=== PATIENT | female | born 1960 | race Caucasian/White ===

== ENCOUNTER 2020-02-11 19:24 | Emergency (ER) | payer BC, SELFPAY ==
[2020-02-11 19:30] VITALS: BP 141/90; PULSE 74; RESP 16; TEMP 36.7; O2SAT 94; BMI 27.4
[2020-02-11 20:35] VITALS: BP 150/93; PULSE 70; RESP 18; O2SAT 92
[2020-02-11 21:00] VITALS: BP 150/93; PULSE 67; RESP 16; O2SAT 97
--- NOTE | 2020-02-11 21:09 | ECG_ITS ---
Measurements Intervals [place] Rate: 60 P: 38 MS: 186 QRS: 37 QRSD: 96 T: 52 QT: 428 QTc: 430 SINUS RHYTHM Compared to ECG 09/30/2018 06:04:29 T-wave abnormality no longer present Electronically Signed On 02-13-2020 11:08:10 CDT by Gume Morse MD [email or web address] f
--- NOTE | 2020-02-11 21:09 | XRR_ITS ---
PROCEDURE INFORMATION: Exam: XR Chest, 1 View Exam date and time: 02/11/2020 9:18 PM Age: 59 years old Clinical indication: Other: Eye pain; Patient HX: Stents; Additional info: Chest pain TECHNIQUE: Imaging protocol: XR of the chest Views: 1 view. COMPARISON: CR Chest 1 [place] [id number] 09/25/2018 6:24 PM FINDINGS: Lungs: Unremarkable. No consolidation. Pleural space: Unremarkable. No pleural effusion. No pneumothorax. Heart/Mediastinum: Unremarkable. No cardiomegaly. Bones/joints: Unremarkable. XR/XR chest 1V portable [id number] IMPRESSION: Negative for infiltrate.
--- NOTE | 2020-02-11 21:09 | W.ED.CHESTPA ---
Documented by User: Ama Harrison MD 02/14/20 19:10 HPI - Chest Pain General: Chief Complaint: Eye Problems Stated Complaint: eye pain Time Seen by Provider: 02/11/20 21:00 History of Present Illness: HPI narrative: Patient is a 59-year-old female who presents today with complaints of clammy episodes and feeling poorly off and on this afternoon. She said it started around 1 this afternoon. She just had sudden onset of feeling poorly and then noted she was a little lightheaded and clammy. She laid down for a while and it got better but when she got up and active again it came back. She says it feels the same as when she came in and had to have a stent placed. She also describes burning across her back which was similar to her prior heart problems as well. At the same time she had some pain behind her left eye. She had no vision changes and that pain is resolved. She says that she had recent medication changes. She was taken off her Zetia and switch to pravastatin. She is on Effient and continues on that. She also had her thyroid medicine increased. She sees Dr. Clemons for her heart. complaint: chest discomfort Pertinent past history: coronary artery disease and STONEHAND Onset (ago): hour(s) (8) Timing of current episode: episodic Prior episodes: Yes Onset: during rest Pain location: other (Across her back) Pain radiation: none Quality: burning Associated symptoms: Deny abdominal pain, dyspnea, fever(s), nausea or vomiting Review of Systems General: Reports: 10 or more systems reviewed and unremarkable except in HPI and below Const: Denies: fever(s), chills, fatigue or malaise Eyes: Denies: change in vision ENMT: Denies: odynophagia Card: Denies: chest pain or swelling of feet/ankles Resp: Denies: dyspnea, productive cough or non-productive cough GI: Denies: abdominal pain, nausea or vomiting : Denies: flank pain or difficulty voiding Musc: Denies: neck pain or back pain Skin/Breast: Denies: rash Neuro: Denies: headache(s), numbness in extremities or weakness in extremities [place]/Lymph: Denies: easy bruising or easy bleeding PFSH ED PFSH: Social History Smoking and tobacco status: former smoker Physical Exam Const: COMMON NORMALS: no acute distress, patient oriented x3, no limitations and alert GENERAL APPEARANCE: cooperative and comfortable HENMT: HEAD & SCALP: normal to inspection FACE & SINUS: normal facial exam Eye: COMMON NORMALS: negative for EOMs intact bilaterally (Patient with a disconjugate gaze which she says is normal and unchanged for her) GENERAL EYE: appearance normal, both eyes and all related structures Neck/C-Spine: COMMON NORMALS: supple, no meningeal signs and no JVD Chest: COMMONS NORMALS: normal inspection of the chest Resp: COMMON NORMALS: normal respiratory effort, No use of accessory muscles and clear to auscultation bilaterally AUSCULTATION: clear to auscultation bilaterally Cardio: COMMON NORMALS: no JVD, regular rate, regular rhythm and No murmurs present (Cardio) RATE: regular rate RHYTHM: regular rhythm GI: COMMON NORMALS: Normal to inspection, nondistended, normoactive bowel sounds present, Soft to palpation and non-tender INSPECTION: Yes normal to inspection AUSCULTATION: Yes normoactive bowel sounds PALPATION: Yes Soft to palpation Back/Pelvis: COMMON NORMALS: thoracic and lumbar spine normal to inspection Extremity: COMMON NORMALS: normal to inspection Neuro: COMMON NORMALS: patient oriented x3, moves all extremities, no focal motor deficits and no sensory deficits noted SENSORIUM/ORIENTATION: Yes alert MENINGEAL SIGNS: Yes no meningeal signs Psych: COMMON NORMALS: mental status grossly normal, cooperative and normal affect Skin: COMMON NORMALS: no rashes or lesions noted and turgor normal GENERAL SKIN EXAM: no rashes or lesions noted and turgor normal Course Vital Signs: Vital signs: Vital Signs Temperature 98.1 F 02/11/20 19:30 Pulse Rate 76 02/12/20 00:03 Respiratory Rate 16 02/12/20 00:03 Blood Pressure 120/74 02/12/20 00:03 Pulse Oximetry 96 02/12/20 00:03 MDM - Chest Pain Lab Data: Labs: Lab Results 02/11/20 02/11/20 02/11/20 Range/Units 21:00 21:00 21:00 WBC 6.3 (4.0-10.0) 10^3/ uL RBC 5.06 (4.1-5.3) 10^6/u L Hgb 14.0 (11.5-15.3) g/dL Hct 44.0 (37.0-47.0) % MCV 87.0 (81-99) fL MCH 27.7 L (28.0-34.0) pg MCHC 31.8 (30.0-36.0) g/dL RDW 13.6 (12.1-15.1) % Plt Count 284 (130-400) 10^3/c mm MPV 10.3 (7.4-10.4) fL Neut % (Auto) 46.2 % Lymph % (Auto) 45.3 % [place] % (Auto) 6.6 % Eos % (Auto) 0.9 % Baso % (Auto) 0.8 % Neut # (Auto) 2.9 (1.8-7.7) 10^3/u L Lymph # (Auto) 2.9 (0.8-4.8) 10^3/u L [place] # (Auto) 0.4 (0.2-0.9) 10^3/u L Eos # (Auto) 0.1 (0.0-0.8) 10^3/u L Baso # (Auto) 0.1 (0.0-0.1) 10^3/u L Nucleated RBC % (a uto) 0 % Nucleated RBCs # 0.0 /100WBC PT 12.50 (10.5-13.3) SECO NDS INR 0.91 (0.8-1.2) APTT 29.4 (23.9-36.7) SECO NDS Sodium 137 (136-145) mmol/L Potassium 4.2 (3.5-5.1) mmol/L Chloride 100 (98-107) mmol/L Carbon Dioxide 24 (22-29) mmol/L Anion Gap 17.2 (5-19) BUN 11 (8-23) mg/dL Creatinine 0.5 (0.5-0.9) mg/dL GFR Calculation 125.9 (90-130) mL/min Glucose 97 (65-115) mg/dL Calculated Osmolal ity 280 L (285-295) mOsm/k g Calcium 10.1 (8.5-10.5) mg/dL Total Bilirubin 0.4 (0.15-1.2) mg/dL AST 20 (0-32) U/L ALT 25 (0-33) U/L Alkaline Phosphata se 82 (35-105) IU/L Troponin T Baselin e (0-10) ng/mL Troponin T 120 Min nondalton (0-10) ng/mL Delta Troponin T (0-10) ABS# NT-Pro-B Natriuret Pep 14 (0-125) pg/mL Total Protein 7.6 (6.6-8.7) g/dL Albumin 4.9 (3.5-5.2) g/dL Globulin 2.7 (1.3-4.6) g/dL 02/11/20 02/11/20 Range/Units 21:00 23:00 WBC (4.0-10.0) 10^3/ uL RBC (4.1-5.3) 10^6/u L Hgb (11.5-15.3) g/dL Hct (37.0-47.0) % MCV (81-99) fL MCH (28.0-34.0) pg MCHC (30.0-36.0) g/dL RDW (12.1-15.1) % Plt Count (130-400) 10^3/c mm MPV (7.4-10.4) fL Neut % (Auto) % Lymph % (Auto) % [place] % (Auto) % Eos % (Auto) % Baso % (Auto) % Neut # (Auto) (1.8-7.7) 10^3/u L Lymph # (Auto) (0.8-4.8) 10^3/u L [place] # (Auto) (0.2-0.9) 10^3/u L Eos # (Auto) (0.0-0.8) 10^3/u L Baso # (Auto) (0.0-0.1) 10^3/u L Nucleated RBC % (a uto) % Nucleated RBCs # /100WBC PT (10.5-13.3) SECO NDS INR (0.8-1.2) APTT (23.9-36.7) SECO NDS Sodium (136-145) mmol/L Potassium (3.5-5.1) mmol/L Chloride (98-107) mmol/L Carbon Dioxide (22-29) mmol/L Anion Gap (5-19) BUN (8-23) mg/dL Creatinine (0.5-0.9) mg/dL GFR Calculation (90-130) mL/min Glucose (65-115) mg/dL Calculated Osmolal ity (285-295) mOsm/k g Calcium (8.5-10.5) mg/dL Total Bilirubin (0.15-1.2) mg/dL AST (0-32) U/L ALT (0-33) U/L Alkaline Phosphata se (35-105) IU/L Troponin T Baselin e 6 (0-10) ng/mL Troponin T 120 Min nondalton 6.00 (0-10) ng/mL Delta Troponin T 0 (0-10) ABS# NT-Pro-B Natriuret Pep (0-125) pg/mL Total Protein (6.6-8.7) g/dL Albumin (3.5-5.2) g/dL Globulin (1.3-4.6) g/dL EKG Data^: EKG 1: EKG interpretation date: 02/11/20 EKG interpretation time: 21:10 Interpretation: sinus rhythm, rate 60. Q wave in III. question of slight ST segment elevation inferior. No criteria for STEMI Discharge Plan Discharge Patient Disposition: Home, Self-Care Clinical Impression: Chest pain Hypertension Qualifiers: Hypertension type: unspecified Qualified Code(s): I10 - Essential (primary) hypertension Condition: Stable Prescriptions: No Action ezetimibe [Zetia] 10 mg tablet 10 mg PO QDAY 30 Days Qty: 30 RF: 6 prasugrel [Effient] 10 mg tablet 10 mg PO DAILY 90 Days Qty: 90 RF: 3 Discharge Orders: Discharge Order (Routine); Ordered 02/11/20 Ordered By: Dominique Mcdaniels Referrals: Belem Cabral NP [Primary Care Provider] - 4-7 days Discharge Diet: Advance as tolerated Discharge Activity: Resume usual activity Patient Instructions: Hypertension (ED) Discharge Date/Time: 02/12/20 00:08 Coding Level of Care Code ED Daily Sales Audit Clerk for Chg Fwd Exam Comprehensive Documented by User: Dominique Mcdaniels MD 02/11/20 23:37 HPI - Chest Pain General: Chief Complaint: Eye Problems Stated Complaint: eye pain Time Seen by Provider: 02/11/20 21:00 [facility] ED PFSH: Social History Smoking and tobacco status: former smoker Course Vital Signs: Vital signs: Vital Signs Temperature 98.1 F 02/11/20 19:30 Pulse Rate 76 02/12/20 00:03 Respiratory Rate 16 02/12/20 00:03 Blood Pressure 120/74 02/12/20 00:03 Pulse Oximetry 96 02/12/20 00:03 MDM - Chest Pain MDM Narrative: Medical decision making narrative: Patient presents here with chest pain and high blood pressure. Initial and repeat troponins are negative. Patient is well-appearing here in initial and repeat troponin are negative. Patient is stable for discharge and return if worsening. Lab Data: Labs: Lab Results 02/11/20 02/11/20 02/11/20 Range/Units 21:00 21:00 21:00 WBC 6.3 (4.0-10.0) 10^3/ uL RBC 5.06 (4.1-5.3) 10^6/u L Hgb 14.0 (11.5-15.3) g/dL Hct 44.0 (37.0-47.0) % MCV 87.0 (81-99) fL MCH 27.7 L (28.0-34.0) pg MCHC 31.8 (30.0-36.0) g/dL RDW 13.6 (12.1-15.1) % Plt Count 284 (130-400) 10^3/c mm MPV 10.3 (7.4-10.4) fL Neut % (Auto) 46.2 % Lymph % (Auto) 45.3 % [place] % (Auto) 6.6 % Eos % (Auto) 0.9 % Baso % (Auto) 0.8 % Neut # (Auto) 2.9 (1.8-7.7) 10^3/u L Lymph # (Auto) 2.9 (0.8-4.8) 10^3/u L [place] # (Auto) 0.4 (0.2-0.9) 10^3/u L Eos # (Auto) 0.1 (0.0-0.8) 10^3/u L Baso # (Auto) 0.1 (0.0-0.1) 10^3/u L Nucleated RBC % (a uto) 0 % Nucleated RBCs # 0.0 /100WBC PT 12.50 (10.5-13.3) SECO NDS INR 0.91 (0.8-1.2) APTT 29.4 (23.9-36.7) SECO NDS Sodium 137 (136-145) mmol/L Potassium 4.2 (3.5-5.1) mmol/L Chloride 100 (98-107) mmol/L Carbon Dioxide 24 (22-29) mmol/L Anion Gap 17.2 (5-19) BUN 11 (8-23) mg/dL Creatinine 0.5 (0.5-0.9) mg/dL GFR Calculation 125.9 (90-130) mL/min Glucose 97 (65-115) mg/dL Calculated Osmolal ity 280 L (285-295) mOsm/k g Calcium 10.1 (8.5-10.5) mg/dL Total Bilirubin 0.4 (0.15-1.2) mg/dL AST 20 (0-32) U/L ALT 25 (0-33) U/L Alkaline Phosphata se 82 (35-105) IU/L Troponin T Baselin e (0-10) ng/mL Troponin T 120 Min nondalton (0-10) ng/mL Delta Troponin T (0-10) ABS# NT-Pro-B Natriuret Pep 14 (0-125) pg/mL Total Protein 7.6 (6.6-8.7) g/dL Albumin 4.9 (3.5-5.2) g/dL Globulin 2.7 (1.3-4.6) g/dL 02/11/20 02/11/20 Range/Units 21:00 23:00 WBC (4.0-10.0) 10^3/ uL RBC (4.1-5.3) 10^6/u L Hgb (11.5-15.3) g/dL Hct (37.0-47.0) % MCV (81-99) fL MCH (28.0-34.0) pg MCHC (30.0-36.0) g/dL RDW (12.1-15.1) % Plt Count (130-400) 10^3/c mm MPV (7.4-10.4) fL Neut % (Auto) % Lymph % (Auto) % [place] % (Auto) % Eos % (Auto) % Baso % (Auto) % Neut # (Auto) (1.8-7.7) 10^3/u L Lymph # (Auto) (0.8-4.8) 10^3/u L [place] # (Auto) (0.2-0.9) 10^3/u L Eos # (Auto) (0.0-0.8) 10^3/u L Baso # (Auto) (0.0-0.1) 10^3/u L Nucleated RBC % (a uto) % Nucleated RBCs # /100WBC PT (10.5-13.3) SECO NDS INR (0.8-1.2) APTT (23.9-36.7) SECO NDS Sodium (136-145) mmol/L Potassium (3.5-5.1) mmol/L Chloride (98-107) mmol/L Carbon Dioxide (22-29) mmol/L Anion Gap (5-19) BUN (8-23) mg/dL Creatinine (0.5-0.9) mg/dL GFR Calculation (90-130) mL/min Glucose (65-115) mg/dL Calculated Osmolal ity (285-295) mOsm/k g Calcium (8.5-10.5) mg/dL Total Bilirubin (0.15-1.2) mg/dL AST (0-32) U/L ALT (0-33) U/L Alkaline Phosphata se (35-105) IU/L Troponin T Baselin e 6 (0-10) ng/mL Troponin T 120 Min nondalton 6.00 (0-10) ng/mL Delta Troponin T 0 (0-10) ABS# NT-Pro-B Natriuret Pep (0-125) pg/mL Total Protein (6.6-8.7) g/dL Albumin (3.5-5.2) g/dL Globulin (1.3-4.6) g/dL Discharge Plan Discharge Patient Disposition: Home, Self-Care Clinical Impression: Chest pain Hypertension Qualifiers: Hypertension type: unspecified Qualified Code(s): I10 - Essential (primary) hypertension Condition: Stable Prescriptions: No Action ezetimibe [Zetia] 10 mg tablet 10 mg PO QDAY 30 Days Qty: 30 RF: 6 prasugrel [Effient] 10 mg tablet 10 mg PO DAILY 90 Days Qty: 90 RF: 3 Discharge Orders: Discharge Order (Routine); Ordered 02/11/20 Ordered By: Dominique Mcdaniels Referrals: Belem Cabral NP [Primary Care Provider] - 4-7 days Discharge Diet: Advance as tolerated Discharge Activity: Resume usual activity Patient Instructions: Hypertension (ED) Discharge Date/Time: 02/12/20 00:08 Coding Level of Care Code ED Daily Sales Audit Clerk for Chg Fwd Exam Comprehensive
[2020-02-11 21:15] LABS: Basophils # 0.1 10^3/uL (0.0-0.1); Basophils % 0.8 %; Eosinophils # 0.1 10^3/uL (0.0-0.8); Eosinophils % 0.9 %; Lymphocytes # 2.9 10^3/uL (0.8-4.8); Lymphocytes % 45.3 %; Mean Corpuscular HGB Conc 31.8 g/dL (30.0-36.0); Mean Corpuscular Hemoglobin 27.7 pg (28.0-34.0); Mean Platelet Volume 10.3 fL (7.4-10.4); Monocytes # 0.4 10^3/uL (0.2-0.9); Monocytes % 6.6 %; Neutrophils # 2.9 10^3/uL (1.8-7.7); Neutrophils % 46.2 %; Nucleated Red Blood Cells % 0 %; Platelet Count 284 10^3/cmm (130-400); Red Blood Count 5.06 10^6/uL (4.1-5.3); Red Cell Distribution Width 13.6 % (12.1-15.1); White Blood Count 6.3 10^3/uL (4.0-10.0)
[2020-02-11 21:29] LABS: INR 0.91 (0.8-1.2); Partial Thromboplastin Time 29.4 SECONDS (23.9-36.7)
[2020-02-11 21:37] LABS: Troponin(5th) Baseline 6 ng/mL (0-10)
[2020-02-11 21:44] LABS: Alanine Aminotransferase 25 U/L (0-33); Albumin Level 4.9 g/dL (3.5-5.2); Alkaline Phosphatase 82 IU/L (35-105); Anion Gap 17.2 (5-19); Aspartate Amino Transferase 20 U/L (0-32); Blood Urea Nitrogen 11 mg/dL (8-23); Calcium 10.1 mg/dL (8.5-10.5); Carbon Dioxide 24 mmol/L (22-29); Chloride 100 mmol/L (98-107); Globulin 2.7 g/dL (1.3-4.6); Glomerular Filtration Rate 125.9 mL/min (90-130); Glucose 97 mg/dL (65-115); NT Pro B Type Natriuretic Pept 14 pg/mL (0-125); Osmolality Calculated 280 mOsm/kg (285-295); Potassium 4.2 mmol/L (3.5-5.1); Sodium 137 mmol/L (136-145); Total Bilirubin 0.4 mg/dL (0.15-1.2); Total Protein 7.6 g/dL (6.6-8.7)
[2020-02-11 21:54] VITALS: BP 139/94; PULSE 69; RESP 19; O2SAT 95
[2020-02-11 22:14] VITALS: BP 131/89; PULSE 74; RESP 16; O2SAT 94
[2020-02-11 22:56] VITALS: BP 133/87; PULSE 66; RESP 16; O2SAT 95
--- NOTE | 2020-02-11 23:03 | PC.NURSE ---
care and report given to discharge door operator
--- NOTE | 2020-02-11 23:09 | ECG_ITS ---
Measurements Intervals [place] Rate: 60 P: 45 VA: 194 QRS: 48 QRSD: 94 T: 57 QT: 434 QTc: 435 SINUS RHYTHM Compared to ECG 09/30/2018 06:04:29 T-wave abnormality no longer present Electronically Signed On 02-13-2020 11:11:44 CDT by Gume Morse MD [id number] f
[2020-02-11 23:23] LABS: Troponin 5 2HR Delta 0 ABS# (0-10)
[2020-02-12 00:03] VITALS: BP 120/74; PULSE 76; RESP 16; O2SAT 96
== END 2020-02-12 00:08 | disposition home or self-care (01) ==
PROVIDERS: Emergency Medicine; Emergency Provider Emergency Medicine; PCP Nurse Practitioner
DX: R07.9 Chest pain, unspecified (principal); I10 Essential (primary) hypertension; Z87.891 Personal history of nicotine dependence
CPT/HCPCS: 12345; 71045; 80053; 83880; 84484; 85025; 85610; 85730; 93005; 93010; 99283; 99284

== ENCOUNTER 2020-09-06 10:32 | Emergency (ER) | payer BC, SELFPAY ==
--- NOTE | 2020-09-06 10:56 | XR_ITS ---
WS: [id number] XR chest 1V portable [id number] REASON FOR EXAM: cp FINDINGS: Chest is stable compared to 02/11/2020. Mild tortuosity of the thoracic aorta. Normal heart. Calcified granulomatous changes in both hemithoraces. No active pulmonary parenchymal or pleural abno rmality is noted. XR/XR chest 1V portable [id number] IMPRESSION: No acute chest abnormality.
--- NOTE | 2020-09-06 10:56 | ECG_ITS ---
[facility] Test Date: 2020-09-06 Pat Name: Karen Oden Department: Room: Gender: Female [id number] Administrator: : 1960 Requested By: Dominique Mcdaniels Order Number: [id number] Daniela MD: Cecilia Galan M.D. Measurements Intervals [place] Rate: 71 P: 66 [place]: 169 QRS: 85 QRSD: 88 T: 65 QT: 397 QTc: 432 Interpretive Statements SINUS RHYTHM Compared to ECG 02/11/2020 22:59:36 No significant changes Electronically Signed On 09-07-2020 22:19:52 AFFILIATE MARKETING MANAGER by Cecilia Galan M.D. [id number] f
--- NOTE | 2020-09-06 11:01 | W.ED.CHESTPA ---
HPI - Chest Pain General: Chief Complaint: COVID symptoms Stated Complaint: covid +/tightness in chest Time Seen by Provider: 09/06/20 10:56 Source: patient Mode of arrival: ambulatory Limitations: no limitations History of Present Illness: HPI narrative: 60-year-old female states she tested positive for Covid yesterday. She states she has been having some tingling in her chest with slight pressure. She denies any vomiting or diarrhea. She denies any shortness of breath. She states that her pain is current 1 out of 10. Denies any pain with inspiration. Associated symptoms: Deny abdominal pain, dyspnea, fever(s), nausea or vomiting Review of Systems Const: Denies: fever(s), chills, body aches or change in appetite Eyes: Denies: blurry vision or eye discomfort ENMT: Denies: throat pain or dental pain Card: Reports: chest pain Resp: Denies: dyspnea GI: Denies: abdominal pain, nausea, vomiting or diarrhea : Denies: dysuria Musc: Denies: neck pain or back pain Skin/Breast: Denies: rash Neuro: Denies: headache(s) Psych: Denies: depression Tico/Lymph: Denies: easy bruising All/Imm: Denies: urticaria PFSH ED PFSH: Medical History (Updated 09/06/20 @ 12:21 by Dominique Mcdaniels MD) Hx of coronary artery disease Social History Smoking and tobacco status: former smoker Physical Exam Const: COMMON NORMALS: no acute distress, patient oriented x3 and healthy appearing HENMT: COMMON NORMALS: normocephalic and atraumatic HEAD & SCALP: normocephalic and atraumatic Eye: COMMON NORMALS: Equal, round and reactive pupils present and EOMs intact bilaterally PUPIL: Yes Equal, round and reactive pupils present Neck/C-Spine: COMMON NORMALS: full ROM and supple Chest: COMMONS NORMALS: normal inspection of the chest and normal palpation of entire chest wall Resp: COMMON NORMALS: normal respiratory effort, No retractions, No use of accessory muscles and clear to auscultation bilaterally AUSCULTATION: clear to auscultation bilaterally Cardio: COMMON NORMALS: regular rate, regular rhythm and No murmurs present (Cardio) RATE: regular rate RHYTHM: regular rhythm GI: COMMON NORMALS: Normal to inspection, nondistended, normoactive bowel sounds present, Soft to palpation, non-tender and no masses PALPATION: Yes Soft to palpation Extremity: COMMON NORMALS: normal to inspection and full ROM Neuro: COMMON NORMALS: patient oriented x3, moves all extremities and no focal motor deficits Psych: COMMON NORMALS: mental status grossly normal, Normal thought process present and cooperative THOUGHT PROCESS: Normal thought process present Skin: COMMON NORMALS: no rashes or lesions noted and no wounds GENERAL SKIN EXAM: no rashes or lesions noted Course Vital Signs: Vital signs: Vital Signs Temperature 98.2 F 09/06/20 11:03 Pulse Rate 72 09/06/20 11:44 Respiratory Rate 16 09/06/20 11:44 Blood Pressure 131/80 09/06/20 11:44 Pulse Oximetry 94 09/06/20 11:44 MDM - Chest Pain MDM Narrative: Medical decision making narrative: Rtia presents here with atypical chest pain. Likely pleurisy from her Covid. Her x-ray and lab work are all normal. She has no signs of pulmonary embolism or acute coronary cause. She is stable for discharge and is to monitor her oxygen and return if worsening. She understands and agrees to plan. Lab Data: Labs: Lab Results 09/06/20 09/06/20 09/06/20 Range/Units 11:37 11:37 11:37 WBC 4.3 (4.0-10.0) 10^3/ uL RBC 5.18 (4.1-5.3) 10^6/u L Hgb 14.5 (11.5-15.3) g/dL Hct 45.5 (37.0-47.0) % MCV 87.8 (81-99) fL MCH 28.0 (28.0-34.0) pg MCHC 31.9 (30.0-36.0) g/dL RDW 13.2 (12.1-15.1) % Plt Count 256 (130-400) 10^3/c mm MPV 10.4 (7.4-10.4) fL Neut % (Auto) 53.5 % Lymph % (Auto) 37.3 % [place] % (Auto) 8.8 % Eos % (Auto) 0.2 % Baso % (Auto) 0.2 % Neut # (Auto) 2.31 (1.8-7.7) 10^3/u L Lymph # (Auto) 1.6 (0.8-4.8) 10^3/u L [place] # (Auto) 0.4 (0.2-0.9) 10^3/u L Eos # (Auto) 0.0 (0.0-0.8) 10^3/u L Baso # (Auto) 0.0 (0.0-0.1) 10^3/u L Nucleated RBC % (a uto) 0 % Nucleated RBCs # 0.0 /100WBC PT (12.1-14.9) SECO NDS INR (0.8-1.2) Sodium 138 (136-145) mmol/L Potassium 4.4 (3.5-5.1) mmol/L Chloride 102 (98-107) mmol/L Carbon Dioxide 28 (22-29) mmol/L Anion Gap 12.4 (5-19) BUN 12 (8-23) mg/dL Creatinine 0.5 (0.5-0.9) mg/dL GFR Calculation 125.4 (90-130) mL/min Glucose 120 H (65-115) mg/dL Calculated Osmolal ity 287 (285-295) mOsm/k g Calcium 10.0 (8.5-10.5) mg/dL Total Bilirubin 0.2 (0.15-1.2) mg/dL AST 18 (0-32) U/L ALT 24 (0-33) U/L Alkaline Phosphata se 81 (35-105) IU/L Troponin T Baselin e 6 (0-10) ng/L Troponin T 120 Min johnny (0-10) ng/L Delta Troponin T (0-10) ABS# Total Protein 7.3 (6.6-8.7) g/dL Albumin 4.5 (3.5-5.2) g/dL Globulin 2.8 (1.3-4.6) g/dL 09/06/20 09/06/20 Range/Units 11:37 12:28 WBC (4.0-10.0) 10^3/ uL RBC (4.1-5.3) 10^6/u L Hgb (11.5-15.3) g/dL Hct (37.0-47.0) % MCV (81-99) fL MCH (28.0-34.0) pg MCHC (30.0-36.0) g/dL RDW (12.1-15.1) % Plt Count (130-400) 10^3/c mm MPV (7.4-10.4) fL Neut % (Auto) % Lymph % (Auto) % [place] % (Auto) % Eos % (Auto) % Baso % (Auto) % Neut # (Auto) (1.8-7.7) 10^3/u L Lymph # (Auto) (0.8-4.8) 10^3/u L [place] # (Auto) (0.2-0.9) 10^3/u L Eos # (Auto) (0.0-0.8) 10^3/u L Baso # (Auto) (0.0-0.1) 10^3/u L Nucleated RBC % (a uto) % Nucleated RBCs # /100WBC PT 12.80 (12.1-14.9) SECO NDS INR 0.94 (0.8-1.2) Sodium (136-145) mmol/L Potassium (3.5-5.1) mmol/L Chloride (98-107) mmol/L Carbon Dioxide (22-29) mmol/L Anion Gap (5-19) BUN (8-23) mg/dL Creatinine (0.5-0.9) mg/dL GFR Calculation (90-130) mL/min Glucose (65-115) mg/dL Calculated Osmolal ity (285-295) mOsm/k g Calcium (8.5-10.5) mg/dL Total Bilirubin (0.15-1.2) mg/dL AST (0-32) U/L ALT (0-33) U/L Alkaline Phosphata se (35-105) IU/L Troponin T Baselin e (0-10) ng/L Troponin T 120 Min johnny 6.00 (0-10) ng/L Delta Troponin T 0 (0-10) ABS# Total Protein (6.6-8.7) g/dL Albumin (3.5-5.2) g/dL Globulin (1.3-4.6) g/dL Imaging Data^: CXR: Radiologist's impression: no acute abnormality EKG Data^: EKG 1: Attestation: I personally reviewed and interpreted this EKG as follows: EKG interpretation date: 09/06/20 EKG interpretation time: 11:05 Interpretation: nsr hr [address] or twave abnormalities qrs 88 qtc 419 Discharge Plan Discharge Patient Disposition: Home Clinical Impression: COVID-19, Atypical chest pain Condition: Stable Prescriptions: No Action thyroid (pork) 30 mg tablet 30 mg PO DAILY RF: 0 nitroglycerin [Nitrostat] 0.4 mg tablet, sublingual 0.4 mg SUBLINGUAL Q5M PRNRF: 0 aspirin [Adult Aspirin Regimen] 81 mg tablet,delayed release (DR/EC) 81 mg PO DAILY RF: 0 pravastatin 20 mg tablet 40 mg PO DAILY RF: 0 ezetimibe [Zetia] 10 mg tablet 10 mg PO QDAY 30 Days Qty: 30 RF: 6 prasugrel [Effient] 10 mg tablet 10 mg PO DAILY 90 Days Qty: 90 RF: 3 Discharge Orders: Discharge ED (Routine); Ordered 09/06/20 Ordered By: Dominique Mcdaniels Referrals: Belem Cabral NP [Primary Care Provider] - 1-3 days Discharge Diet: Advance as tolerated Discharge Activity: Resume usual activity Patient Instructions: Chest Pain (ED) Coding Level of Care Code ED Lye Peel Operator for Chg Fwd Exam Comprehensive
[2020-09-06 11:03] VITALS: BP 125/79; PULSE 110; RESP 16; TEMP 36.8; O2SAT 95; BMI 25.6
[2020-09-06 11:11] VITALS: BP 131/80; PULSE 75; RESP 16; O2SAT 94
[2020-09-06 11:42] VITALS: O2SAT 93
[2020-09-06 11:44] VITALS: BP 131/80; PULSE 72; RESP 16; O2SAT 94
[2020-09-06 11:45] LABS: Basophils % 0.2 %; Eosinophils % 0.2 %; Hematocrit 45.5 % (37.0-47.0); Hemoglobin 14.5 g/dL (11.5-15.3); Lymphocytes # 1.6 10^3/uL (0.8-4.8); Lymphocytes % 37.3 %; Mean Corpuscular HGB Conc 31.9 g/dL (30.0-36.0); Mean Corpuscular Volume 87.8 fL (81-99); Mean Platelet Volume 10.4 fL (7.4-10.4); Monocytes # 0.4 10^3/uL (0.2-0.9); Monocytes % 8.8 %; Neutrophils # 2.31 10^3/uL (1.8-7.7); Neutrophils % 53.5 %; Nucleated Red Blood Cells % 0 %; Platelet Count 256 10^3/cmm (130-400); Red Blood Count 5.18 10^6/uL (4.1-5.3); Red Cell Distribution Width 13.2 % (12.1-15.1); White Blood Count 4.3 10^3/uL (4.0-10.0)
[2020-09-06 11:57] LABS: INR 0.94 (0.8-1.2)
[2020-09-06 12:06] LABS: Alanine Aminotransferase 24 U/L (0-33); Albumin Level 4.5 g/dL (3.5-5.2); Alkaline Phosphatase 81 IU/L (35-105); Anion Gap 12.4 (5-19); Aspartate Amino Transferase 18 U/L (0-32); Blood Urea Nitrogen 12 mg/dL (8-23); Carbon Dioxide 28 mmol/L (22-29); Chloride 102 mmol/L (98-107); Creatinine Clr Calc Pharmacy 103.4505; Globulin 2.8 g/dL (1.3-4.6); Glomerular Filtration Rate 125.4 mL/min (90-130); Glucose 120 mg/dL (65-115); Osmolality Calculated 287 mOsm/kg (285-295); Potassium 4.4 mmol/L (3.5-5.1); Sodium 138 mmol/L (136-145); Total Bilirubin 0.2 mg/dL (0.15-1.2); Total Protein 7.3 g/dL (6.6-8.7)
[2020-09-06 12:07] LABS: Troponin(5th) Baseline 6 ng/L (0-10)
[2020-09-06 12:59] LABS: Troponin 5 2HR Delta 0 ABS# (0-10)
[2020-09-06 13:15] VITALS: BP 126/83; PULSE 88; RESP 16; TEMP 37.1; O2SAT 94
== END 2020-09-06 13:17 | disposition home or self-care (01) ==
PROVIDERS: Emergency Provider Emergency Medicine; PCP Nurse Practitioner
DX: U07.1 COVID-19 (principal); R07.89 Other chest pain; Z79.82 Long term (current) use of aspirin; I25.10 Atherosclerotic heart disease of native coronary artery without angina pectoris; Z87.891 Personal history of nicotine dependence
CPT/HCPCS: 12345; 71045; 80053; 84484; 85025; 85610; 93005; 99283

== ENCOUNTER 2021-03-18 20:08 | Emergency (ER) | payer BC, SELFPAY ==
[2021-03-18 20:29] VITALS: BP 164/92; PULSE 72; RESP 17; O2SAT 95; BMI 26.2
--- NOTE | 2021-03-18 20:31 | XRR_ITS ---
PROCEDURE INFORMATION: Exam: XR Chest Exam date and time: 03/18/2021 8:31 PM Age: 60 years old Clinical indication: Other: Chills/sweats/malaise TECHNIQUE: Imaging protocol: XR of the chest. Views: 1 view. COMPARISON: CR XR chest 1V portable [id number] 09/06/2020 11:18 AM FINDINGS: Lungs: Unremarkable. No consolidation. Pleural spaces: Unremarkable. No pleural effusion. No pneumothorax. Heart/Mediastinum: Unremarkable. No cardiomegaly. Bones/joints: Unremarkable. XR/XR chest 1V portable [id number] IMPRESSION: No acute findings. Stable appearance of the chest compared with 09/06/2020.
--- NOTE | 2021-03-18 20:48 | ECG_ITS ---
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 Measurements Intervals [place] Rate: 65 P: 36 NV: 190 QRS: 36 QRSD: 77 T: 46 QT: 389 QTc: 407 Interpretive Statements SINUS RHYTHM POSSIBLE LEFT ATRIAL ENLARGEMENT [-0.1mV P WAVE IN V1/V2] LOW QRS VOLTAGE IN PRECORDIAL LEADS [QRS DEFLECTION < 1.0 mV IN CHEST LEADS] SEPTAL MYOCARDIAL INFARCTION [40+ ms Q WAVE IN V1/V2], OF INDETERMINATE AGE ST ELEVATION, CONSIDER INFERIOR INJURY [MARKED ST ELEVATION W/O NORMALLY INFLECTED T WAVE IN II/aVF] ACUTE DC Compared to ECG 09/06/2020 11:05:59 Low QRS voltage now present Myocardial infarct finding now present ST (T wave) deviation now present Electronically Signed On 03-19-2021 21:09:51 CDT by Cecilia Galan M.D. [id number]
[2021-03-18 20:50] VITALS: BP 145/83; PULSE 65; RESP 15; O2SAT 96
[2021-03-18 21:48] LABS: Basophils # 0.1 10^3/uL (0.0-0.1); Basophils % 0.7 %; Eosinophils # 0.1 10^3/uL (0.0-0.8); Hematocrit 42.2 % (37.0-47.0); Hemoglobin 13.4 g/dL (11.5-15.3); Lymphocytes # 1.9 10^3/uL (0.8-4.8); Lymphocytes % 27.9 %; Mean Corpuscular HGB Conc 31.8 g/dL (30.0-36.0); Mean Corpuscular Hemoglobin 27.4 pg (28.0-34.0); Mean Corpuscular Volume 86.3 fL (81-99); Mean Platelet Volume 10.7 fL (7.4-10.4); Monocytes # 0.4 10^3/uL (0.2-0.9); Monocytes % 5.4 %; Neutrophils # 4.41 10^3/uL (1.8-7.7); Neutrophils % 64.7 %; Nucleated Red Blood Cells % 0 %; Platelet Count 248 10^3/cmm (130-400); Red Blood Count 4.89 10^6/uL (4.1-5.3); Red Cell Distribution Width 13.7 % (12.1-15.1); White Blood Count 6.8 10^3/uL (4.0-10.0)
[2021-03-18 21:49] LABS: Troponin(5th) Baseline 6 ng/L (0-10)
[2021-03-18 21:52] LABS: Alanine Aminotransferase 20 U/L (0-33); Albumin Level 4.7 g/dL (3.5-5.2); Alkaline Phosphatase 69 IU/L (35-105); Anion Gap 18.1 (5-19); Aspartate Amino Transferase 19 U/L (0-32); Blood Urea Nitrogen 13 mg/dL (8-23); Calcium 9.9 mg/dL (8.5-10.5); Carbon Dioxide 23 mmol/L (22-29); Chloride 102 mmol/L (98-107); Globulin 2.4 g/dL (1.3-4.6); Glomerular Filtration Rate 125.4 mL/min (90-130); Glucose 115 mg/dL (65-115); Osmolality Calculated 289 mOsm/kg (285-295); Potassium 4.1 mmol/L (3.5-5.1); Sodium 139 mmol/L (136-145); Total Bilirubin 0.2 mg/dL (0.15-1.2); Total Protein 7.1 g/dL (6.6-8.7)
[2021-03-18 22:00] VITALS: BP 154/86; PULSE 70; RESP 14; O2SAT 97
[2021-03-18 22:16] LABS: Add Urine Microscopic? YES; Bilirubin Urine Neg (Negative); Blood Urine 2+ (Negative); Glucose Urine UA Norm (Normal); Ketones Urine 1+ (Negative); Leukocyte Esterase Urine Negative (Negative); Nitrate Urine Negative (Negative); Protein Urine Neg (Negative); Urine Appearance Clear (CLEAR); Urine Color Yellow (Yellow); Urobilinogen Urine Norm (Negative); pH Urine 5 (5-7)
[2021-03-18 22:22] LABS: Thyroid Stimulating Hormone 1.52 uIU/mL (0.27-4.20)
[2021-03-18 22:35] LABS: Add Urine Culture? No; Squamous Epithelial Cell Urine 0-4 /hpf (0-5); WBC Urine 0-4 /hpf (0-5)
--- NOTE | 2021-03-18 22:48 | ECG_ITS ---
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 Measurements Intervals [place] Rate: 60 P: 26 [place]: 191 QRS: 16 QRSD: 88 T: 33 QT: 427 QTc: 428 Interpretive Statements SINUS RHYTHM POSSIBLE ANTERIOR MYOCARDIAL INFARCTION [30 ms Q WAVE IN V3/V4, OR R < 0.2 mV IN V4], OF INDETERMINATE AGE Compared to ECG 09/06/2020 11:05:59 Myocardial infarct finding now present Electronically Signed On 03-21-2021 0:33:24 CDT by Cecilia Galan M.D. [id number]
[2021-03-18 23:08] LABS: Bacteria Urine TRACE /hpf
[2021-03-18 23:20] LABS: Troponin 5 2HR Delta 0 ABS# (0-10)
[2021-03-18 23:45] VITALS: BP 130/93; PULSE 67; RESP 18; O2SAT 97
[2021-03-19] VITALS: BP 138/89; PULSE 66; RESP 18; O2SAT 94
[2021-03-19 00:32] LABS: 25 Hydroxy Vitamin D 35 ng/mL (30-100)
[2021-03-19 01:22] VITALS: BP 144/94; PULSE 69; RESP 18; O2SAT 94
--- NOTE | 2021-03-19 07:19 | W.ED.GENADLT ---
HPI - General Adult General: Chief complaint: General Medical Stated complaint: sweats/general malaise Time Seen by Provider: 03/18/21 20:43 History of Present Illness: HPI narrative: 60-year-old female with a history of coronary disease and stenting. She says that her stent was placed 2-1/2 years ago. She is not had any cardiac intervention or testing since. She states that this evening, she had an episode of intense nausea with diaphoresis. She sat down, it seemed to improve a bit, but then returned. When it returned for the second time, she decided to come to the hospital. She says the symptoms are much like the symptoms she felt prior to getting her stent. She also describes a burning sensation to her thoracic back that is similar in presentation to when she had her stent. Onset (ago): hour(s) Location: back Radiation: back Severity: mild Quality: burning and aching Pain Consistency: intermittent Relieving factors: none Exacerbating factors: none Associated symptoms: Reports nausea; Deny cough, diaphoresis, dyspnea, fevers/chills, headache(s), rash, palpitations, seizures or vomiting Review of Systems Const: Denies: diaphoresis Eyes: Denies: change in vision ENMT: Denies: odynophagia or swelling of lips/tongue Card: Denies: palpitations Resp: Denies: dyspnea, productive cough, non-productive cough or wheezing GI: Reports: nausea; Denies: vomiting : Denies: dysuria, urinary frequency, urinary urgency or hematuria Musc: Denies: neck pain or back pain Skin/Breast: Denies: rash or erythema Neuro: Denies: headache(s) Psych: Denies: anxiety PFS ED PFSH: Medical History (Updated 03/19/21 @ 01:15 by Cesario Soni DO) Hx of coronary artery disease Social History Smoking and tobacco status: former smoker Physical Exam Const: GENERAL APPEARANCE: well developed ORIENTATION/CONSCIOUSNESS: Yes oriented to person, Yes oriented to place and Yes oriented to time HENMT: COMMON NORMALS: normocephalic, external ears normal and Normal external nose present HEAD & SCALP: normocephalic FACE & SINUS: normal facial exam NOSE: Normal external nose present and No nasal discharge present EXTERNAL EAR: Yes external ears normal Eye: COMMON NORMALS: Equal, round and reactive pupils present, EOMs intact bilaterally and conjunctivae normal EYELID: eyelids normal CONJUNCTIVA: Yes conjunctivae normal PUPIL: Yes Equal, round and reactive pupils present Neck/C-Spine: GENERAL: No tracheal deviation Chest: COMMONS NORMALS: normal inspection of the chest CHEST: No tenderness Resp: COMMON NORMALS: clear to auscultation bilaterally EFFORT & INSPECTION: No tachypneic, No respiratory distress, No retractions, No uses accessory muscles and No tracheal deviation AUSCULTATION: clear to auscultation bilaterally, no rhonchi, no wheezes and lung sounds not diminished Cardio: COMMON NORMALS: regular rate and regular rhythm RATE: regular rate RHYTHM: regular rhythm HEART SOUNDS: no murmurs PERIPHERAL PULSES: radial pulses present GI: INSPECTION: No abdominal distension AUSCULTATION: No Hyperactive bowel sounds present and No Hypoactive bowel sounds present PALPATION: No Guarding due to palpation present (GI) and No Rigid due to palpation PERCUSSION: no dullness to percussion and no tympanic to percussion Neuro: SENSORIUM/ORIENTATION: Yes oriented to person, Yes oriented to place and Yes oriented to time Psych: COMMON NORMALS: mental status grossly normal Skin: COMMON NORMALS: no rashes or lesions noted GENERAL SKIN EXAM: no rashes or lesions noted Course Consultations: Consultation #1: Jayy, will evaluate the patient in the ER Vital Signs: Vital signs: Vital Signs Pulse Rate 69 03/19/21 01:22 Respiratory Rate 18 03/19/21 01:22 Blood Pressure 144/94 03/19/21 01:22 Pulse Oximetry 94 03/19/21 01:22 MDM - General Adult MDM Narrative: Medical decision making narrative: 60-year-old female with a history of coronary disease with, which sounds like a chest pain equivalent. She has burning sensation across her thoracic spine and back with nausea and diaphoresis. No shortness of breath. Her first troponin was 6, and her next troponin was 6 as well. She has no acute ST changes that are significant on EKG. Her other laboratory is benign. Her discomfort was not quite all the way gone after her second troponin came back. The patient stated to me that she did not feel right, she was offered observation admission. The hospitalist came to see her, at which point she decided she would go home. She will follow-up as an outpatient. Lab Data: Labs: Lab Results 03/18/21 03/18/21 03/18/21 Range/Units 20:55 20:55 20:55 WBC 6.8 (4.0-10.0) 10^3/ uL RBC 4.89 (4.1-5.3) 10^6/u L Hgb 13.4 (11.5-15.3) g/dL Hct 42.2 (37.0-47.0) % MCV 86.3 (81-99) fL MCH 27.4 L (28.0-34.0) pg MCHC 31.8 (30.0-36.0) g/dL RDW 13.7 (12.1-15.1) % Plt Count 248 (130-400) 10^3/c mm MPV 10.7 H (7.4-10.4) fL Neut % (Auto) 64.7 % Lymph % (Auto) 27.9 % [place] % (Auto) 5.4 % Eos % (Auto) 1.0 % Baso % (Auto) 0.7 % Neut # (Auto) 4.41 (1.8-7.7) 10^3/u L Lymph # (Auto) 1.9 (0.8-4.8) 10^3/u L [place] # (Auto) 0.4 (0.2-0.9) 10^3/u L Eos # (Auto) 0.1 (0.0-0.8) 10^3/u L Baso # (Auto) 0.1 (0.0-0.1) 10^3/u L Nucleated RBC % (a uto) 0 % Nucleated RBCs # 0.0 /100WBC Sodium 139 (136-145) mmol/L Potassium 4.1 (3.5-5.1) mmol/L Chloride 102 (98-107) mmol/L Carbon Dioxide 23 (22-29) mmol/L Anion Gap 18.1 (5-19) BUN 13 (8-23) mg/dL Creatinine 0.5 (0.5-0.9) mg/dL GFR Calculation 125.4 (90-130) mL/min Glucose 115 (65-115) mg/dL Calculated Osmolal ity 289 (285-295) mOsm/k g Lactic Acid 1.0 (0.5-2.2) mmol/L Calcium 9.9 (8.5-10.5) mg/dL Total Bilirubin 0.2 (0.15-1.2) mg/dL AST 19 (0-32) U/L ALT 20 (0-33) U/L Alkaline Phosphata se 69 (35-105) IU/L Troponin T Baselin e (0-10) ng/L Troponin T 120 Min [place] (0-10) ng/L Delta Troponin T (0-10) ABS# Total Protein 7.1 (6.6-8.7) g/dL Albumin 4.7 (3.5-5.2) g/dL Globulin 2.4 (1.3-4.6) g/dL 25-OH Vitamin D To kyung (30-100) ng/mL TSH (0.27-4.20) uIU/ mL Urine Color (Yellow) Urine Appearance (CLEAR) Urine pH (5-7) Ur Specific Gravit y (1.005-1.030) Urine Protein (Negative) Urine Glucose (UA) (Normal) Urine Ketones (Negative) Urine Blood (Negative) Urine Nitrate (Negative) Urine Bilirubin (Negative) Urine Urobilinogen (Negative) mg/dL Ur Leukocyte Jesika ase (Negative) Urine RBC (0-2) /hpf Urine WBC (0-5) /hpf Ur Squamous Epith Cells (0-5) /hpf Amorphous Sediment Urine Bacteria (NONE) /hpf 03/18/21 03/18/21 03/18/21 Range/Units 20:55 20:55 21:57 WBC (4.0-10.0) 10^3/ uL RBC (4.1-5.3) 10^6/u L Hgb (11.5-15.3) g/dL Hct (37.0-47.0) % MCV (81-99) fL MCH (28.0-34.0) pg MCHC (30.0-36.0) g/dL RDW (12.1-15.1) % Plt Count (130-400) 10^3/c mm MPV (7.4-10.4) fL Neut % (Auto) % Lymph % (Auto) % [place] % (Auto) % Eos % (Auto) % Baso % (Auto) % Neut # (Auto) (1.8-7.7) 10^3/u L Lymph # (Auto) (0.8-4.8) 10^3/u L [place] # (Auto) (0.2-0.9) 10^3/u L Eos # (Auto) (0.0-0.8) 10^3/u L Baso # (Auto) (0.0-0.1) 10^3/u L Nucleated RBC % (a uto) % Nucleated RBCs # /100WBC Sodium (136-145) mmol/L Potassium (3.5-5.1) mmol/L Chloride (98-107) mmol/L Carbon Dioxide (22-29) mmol/L Anion Gap (5-19) BUN (8-23) mg/dL Creatinine (0.5-0.9) mg/dL GFR Calculation (90-130) mL/min Glucose (65-115) mg/dL Calculated Osmolal ity (285-295) mOsm/k g Lactic Acid (0.5-2.2) mmol/L Calcium (8.5-10.5) mg/dL Total Bilirubin (0.15-1.2) mg/dL AST (0-32) U/L ALT (0-33) U/L Alkaline Phosphata se (35-105) IU/L Troponin T Baselin e 6 (0-10) ng/L Troponin T 120 Min [place] (0-10) ng/L Delta Troponin T (0-10) ABS# Total Protein (6.6-8.7) g/dL Albumin (3.5-5.2) g/dL Globulin (1.3-4.6) g/dL 25-OH Vitamin D To kyung 35 (30-100) ng/mL TSH 1.52 (0.27-4.20) uIU/ mL Urine Color Yellow (Yellow) Urine Appearance Clear (CLEAR) Urine pH 5 (5-7) Ur Specific Gravit y 1.020 (1.005-1.030) Urine Protein Neg (Negative) Urine Glucose (UA) Norm (Normal) Urine Ketones 1+ H (Negative) Urine Blood 2+ H (Negative) Urine Nitrate Negative (Negative) Urine Bilirubin Neg (Negative) Urine Urobilinogen Norm (Negative) mg/dL Ur Leukocyte Jesika ase Negative (Negative) Urine RBC 5-10 H (0-2) /hpf Urine WBC 0-4 H (0-5) /hpf Ur Squamous Epith Cells 0-4 H (0-5) /hpf Amorphous Sediment Not Reportable Urine Bacteria Trace (NONE) /hpf 03/18/21 Range/Units 22:43 WBC (4.0-10.0) 10^3/ uL RBC (4.1-5.3) 10^6/u L Hgb (11.5-15.3) g/dL Hct (37.0-47.0) % MCV (81-99) fL MCH (28.0-34.0) pg MCHC (30.0-36.0) g/dL RDW (12.1-15.1) % Plt Count (130-400) 10^3/c mm MPV (7.4-10.4) fL Neut % (Auto) % Lymph % (Auto) % [place] % (Auto) % Eos % (Auto) % Baso % (Auto) % Neut # (Auto) (1.8-7.7) 10^3/u L Lymph # (Auto) (0.8-4.8) 10^3/u L [place] # (Auto) (0.2-0.9) 10^3/u L Eos # (Auto) (0.0-0.8) 10^3/u L Baso # (Auto) (0.0-0.1) 10^3/u L Nucleated RBC % (a uto) % Nucleated RBCs # /100WBC Sodium (136-145) mmol/L Potassium (3.5-5.1) mmol/L Chloride (98-107) mmol/L Carbon Dioxide (22-29) mmol/L Anion Gap (5-19) BUN (8-23) mg/dL Creatinine (0.5-0.9) mg/dL GFR Calculation (90-130) mL/min Glucose (65-115) mg/dL Calculated Osmolal ity (285-295) mOsm/k g Lactic Acid (0.5-2.2) mmol/L Calcium (8.5-10.5) mg/dL Total Bilirubin (0.15-1.2) mg/dL AST (0-32) U/L ALT (0-33) U/L Alkaline Phosphata se (35-105) IU/L Troponin T Baselin e (0-10) ng/L Troponin T 120 Min [place] 6.00 (0-10) ng/L Delta Troponin T 0 (0-10) ABS# Total Protein (6.6-8.7) g/dL Albumin (3.5-5.2) g/dL Globulin (1.3-4.6) g/dL 25-OH Vitamin D To kyung (30-100) ng/mL TSH (0.27-4.20) uIU/ mL Urine Color (Yellow) Urine Appearance (CLEAR) Urine pH (5-7) Ur Specific Gravit y (1.005-1.030) Urine Protein (Negative) Urine Glucose (UA) (Normal) Urine Ketones (Negative) Urine Blood (Negative) Urine Nitrate (Negative) Urine Bilirubin (Negative) Urine Urobilinogen (Negative) mg/dL Ur Leukocyte Jesika ase (Negative) Urine RBC (0-2) /hpf Urine WBC (0-5) /hpf Ur Squamous Epith Cells (0-5) /hpf Amorphous Sediment Urine Bacteria (NONE) /hpf Discharge Plan Discharge Patient Disposition: Home Clinical Impression: Chest discomfort, Diaphoresis Condition: Stable Prescriptions: No Action thyroid (pork) 30 mg tablet 30 mg PO DAILY RF: 0 nitroglycerin [Nitrostat] 0.4 mg tablet, sublingual 0.4 mg SUBLINGUAL Q5M PRNRF: 0 aspirin [Adult Aspirin Regimen] 81 mg tablet,delayed release (DR/EC) 81 mg PO DAILY RF: 0 pravastatin 20 mg tablet 40 mg PO DAILY RF: 0 ezetimibe [Zetia] 10 mg tablet 10 mg PO QDAY 30 Days Qty: 30 RF: 6 prasugrel [Effient] 10 mg tablet 10 mg PO DAILY 90 Days Qty: 90 RF: 3 Discharge Orders: Discharge ED (Routine); Ordered 03/19/21 Ordered By: Cesario Soni Referrals: Belem Cabral NP [Primary Care Provider] - 4-7 days Maria De Jesus Shaw MD [Physician] - 4-7 days Patient Instructions: Chest Pain (ED) Activity Restrictions/Additional Instructions: Return for return of your nausea and diaphoresis, dizziness, mental status changes, chest pain, shortness of breath, any other concerning symptoms. Contact your muck miner blasting tomorrow, as more outpatient testing may be needed. Coding Level of Care Code ED Marine Welder for Nahomy Rosado
[2021-03-24 10:53] LABS: Vit D 1,25 (Oh)2, Total 62 pg/mL (18-72); Vit D2 1,25 (Oh)2 <8 pg/mL; Vit D3 1,25 (Oh)2 62 pg/mL
== END 2021-03-19 01:26 | disposition home or self-care (01) ==
PROVIDERS: Physician Assistant; Emergency Provider Emergency Medicine; PCP Nurse Practitioner
DX: R07.89 Other chest pain (principal); R61 Generalized hyperhidrosis; Z79.82 Long term (current) use of aspirin; I25.10 Atherosclerotic heart disease of native coronary artery without angina pectoris; Z87.891 Personal history of nicotine dependence
CPT/HCPCS: 36415; 71045; 80053; 81001; 82306; 82652; 83605; 84443; 84484; 85025; 87040; 93005; 99283

== ENCOUNTER 2022-03-19 08:12 | Outpatient (CLI) | payer BC, SELFPAY ==
[2022-03-19 08:36] VITALS: BMI 26.2
--- NOTE | 2022-03-19 08:41 | NMCV_ITS ---
NM tianna perf SPECT r/s* [id number] Karen Oden Age: 61 Gender: F : 1960 Exam Date: 03/19/2022 09:16 Ordering Phys: Cecilia Galan MD ([email or web address]) Technologist: QAMAR Hicks Exam Location: [facility] Indications: SHORTNESS OF BREATH STRESS TEST Please see separate stress test report in [facility] for full findings IMAGE PROTOCOL Rest/Stress 1 Lexiscan Day Radiopharmaceutical Dose (mCi) Administration Site Administered by Rest: Tc-99m 10.6 IV QAMAR Pickard Sestamibi Stress:Tc-99m 32.8 IV QAMAR Pickard Sestamibi Rest: 19-Mar-2022 60 Discovery 630 Stress: 19-Mar-2022 30 Discovery 630 0.4mg Lexiscan. Images obtained in supine and prone position. SPECT RESULTS Technical Quality: Excellent Raw Data Analysis: Image Corrections: No attenuation or motion correction applied Summed Stress Score: 1 Summed Rest Score: 0 Summed Difference Score: 1 PERFUSION FINDINGS Small area of slightly decreased tracer uptake in the apical inferior region. Significant reversibility was noted in this area FUNCTIONAL RESULTS (calculated via Gated SPECT) Stress Image LV EF (%): 87 Stress EDV (mL):55 TID: 1.03 Stress ESV (mL):7 FUNCTIONAL FINDINGS: Segmental wall motion analysis revealing no gross wall motion normalities. IMPRESSIONS 1. Myocardial perfusion imaging revealing a small area of reversible defect in the apical inferior wall. Suggestive of ischemia in the distribution of the distal right coronary artery. 2. Normal LV ejection fraction of 87%. 3. LV wall motion analysis revealing no gross wall motion abnormalities. 4. Normal LV volume Compared to the study from [facility] 09/28/2018, the transient ischemic dilatation ratio appears to be normal at this time Dr Cecilia Galan MD [facility] (Electronically Signed) Final Date: 19 March 2022 18:30 S
--- NOTE | 2022-03-19 08:41 | ECG_ITS ---
[facility] Test Date: 2022-03-19 Pat Name: Karen Oden Department: Room: Gender: Female Grading Machine Operator: Jasmyn Lira : 1960 Requested By: Cecilia Galan Order Number: [id number] Daniela MD: Cecilia Galan M.D. Interpretive Statements NAME OF STUDY: LEXISCAN SESTAMIBI STRESS TEST INDICATION: Chest Pressure, PROCEDURE: At the baseline, the EKG revealed normal sinus rhythm with a poor R wave progression. Possible left atrial enlargement. The baseline blood pressure was 127/81 mm Hg with a heart rate of 65 beats/min. Lexiscan was infused over a period of 20 seconds. A total of 0.4 milligrams of Lexiscan was infused. The stress phase was continued for a total of 5 minutes. Heart rate at the end of the stress phase was 94 with a blood pressure 136/84. The EKG at the peak infusion revealed no significant changes. Sestamibi was injected 20 seconds after the Lexiscan infusion. Blood pressure at the end of the recovery phase was 143/86 with a heart rate of 89 per minute. CONCLUSION: 1. No significant EKG changes with the LexiScan infusion 2. No LexiScan induced chest pain or cardiac arrhythmia 3. Normal blood pressure and heart rate response 4. Sestamibi/sestamibi perfusion scan pending; see separate report. Electronically Signed On 03-19-2022 19:57:04 CDT by Cecilia Galan M.D. [id number]
[2022-03-19 09:57] VITALS: BP 143/86; PULSE 89
[2022-03-19] MEDS: regadenoson 0.4 Mg/5 ml Syringe IVP (09:59)
== END 2022-03-19 08:13 | disposition home or self-care (01) ==
LOC: CDL 08:15
PROVIDERS: PCP Nurse Practitioner; Visit Provider Internal Medicine Cardiovascular Disease
DX: R06.02 Shortness of breath (principal); R20.8 Other disturbances of skin sensation
CPT/HCPCS: 78452; 93017; A9500; J2785

== ENCOUNTER → 2022-03-28 09:15 | Outpatient (BNVA) | payer BC, SELFPAY | PROVIDERS: PCP Nurse Practitioner; Referring Provider Internal Medicine Cardiovascular Disease; Visit Provider Internal Medicine Cardiovascular Disease | DX: I25.118 Atherosclerotic heart disease of native coronary artery with other forms of angina pectoris (principal); Z86.79 Personal history of other diseases of the circulatory system | CPT/HCPCS: 80048; 85025; 85610; 86850; 86900 ==

== ENCOUNTER 2022-04-11 07:48 | Outpatient (CLI) | payer BC, SELFPAY ==
[2022-04-10 09:14] VITALS: BMI 27.6
[2022-04-11] VITALS (20 sets, daily range): BP systolic 104–149; BP diastolic 69–99; PULSE 54–83; RESP 11–18; TEMP 36.6; O2SAT 92–98; BMI 27.6
[2022-04-11] MEDS: diphenhydrAMINE 50 mg Capsule PO (08:00)
--- NOTE | 2022-04-11 08:30 | XACV_ITS ---
Exam Room: 2 Ht: 157 cm Wt: 68 kg BSA: 1.75 m2 Gender: Female : 1960 Any Known Allergies: Other Exam Priority: Routine Procedure(s): Procedure Description: Diagnostic procedure Procedure Description: Left Heart Catheterization Procedure Description: Coronary Angiography Procedure Description: Pressure Wire Adama KATZ; Diagnostic Cath Status: Elective Diagnostic Findings * The left main is a short medium caliber vessel with no significant stenotic lesions. * The left anterior descending artery is a medium caliber vessel which appears to taper off to is the LV apex. The proximal LAD was found to have mild diffuse intimal irregularities. The stented segment was found to be widely patent. The first septal horse identifier is a relatively large vessel with was found to have around 50% tubular narrowing proximally. The diagonal branches were found to no significant stenotic lesions. * The circumflex artery is a medium to large caliber vessel any and was found to be very tortuous. The first obtuse marginal artery was found to be a relatively small caliber vessel with some mild diffuse disease. The mid circumflex artery was found to have around 40% narrowing proximally. Just before the large second obtuse marginal branch, the circumflex proper was found to have around 60% irregular narrowing. No other significant obstructive lesions were noted. * The RCA is a medium caliber vessel with mild diffuse disease proximally. Right after the first RV branch, the artery appears to be chronically occluded. Bridging collaterals were noted filling up the distal vessels. The distal RCA and the PLV branches were found to have moderate to severe diffuse disease. Interventional Findings * Procedure detail: We engaged left main artery with XB 3.0 guide catheter. IV heparin was administered to maintain ACT above 250 S. After normalization, IFR wire was used to cross the left circumflex artery stenosis and was put in distal vessel. IFR value of 0.92 was obtained that was nonischemic. iFR pullback value of 0.93 was obtained. iFR wire and guide catheter were removed and patient left the Lead Bi Developer in a stable condition. Conclusions 1. 61-year-old white female with history of coronary disease, status post PCI of the LAD lesion and chronic occlusion of the right coronary artery, presented with increasing episodes of chest pain. She was found to have an area of ischemia in distribution of the right coronary artery. This was a new finding compared to the previous perfusion scan. In view of the patient's ongoing increasing episodes of chest pains, in order to further evaluate her coronary status, a repeat cardiac catheterization was recommended. Patient underwent left heart catheterization with left and right coronary angiogram today. The findings are as follows. 2. Chronically occluded right coronary artery with bridging collaterals. Patent stented segment of the mid LAD. Moderate disease in the mid circumflex artery. Mild disease in the other vessels. 3. The cardiac catheterizationdata was reviewed and discussed with Dr. Andrews. It was thought to be appropriate to consider IFR of the circumflex artery lesion. 4. The cardiac catheterization data was reviewed and discussed with the Dr. Andrews. It was thought appropriate to consider IFR of the circumflex artery lesion. Dr. Andrews concurred . At this point, Dr. Andrews took over further management of this patient. 5. iFR is nonischemic for left circumflex artery stenosis. Medical therapy advised. Recommendations * Aggressive risk factor modification. * Outpatient cardiology follow-up in 4-week. Interventional RX Recommendation: medical therapy and/or counseling Diagnostic RX Recommendation: other cardiac therapy w/o CABG/PCI Anticoagulation: Heparin LV EDP: 34 mmHg Left Ventriculography Findings: * LV gram was not performed because of the restrictions of the dye usage. Pressures Phase:Rest AO : 94 / 72 ( 84 ) @ 9:59:00 AM 133 / 68 ( 96 ) @ 10:04:00 AM 128 / 92 ( 109 ) @ 10:16:00 AM LV : 128 / 5 / 34 @ 10:04:00 AM 132 / 8 / 37 @ 10:04:00 AM Valves Phase:DefaultPhase AV : 0.0 @ 9:27:06 AM 0.0 @ 9:27:06 AM AV Mean Gradient: 0.0 @ 9:27:06 AM 0.0 @ 9:27:06 AM Clinical Evaluation EBL: 5mL-10mL Procedural Details Procedure Consent Obtained. Admit Source: Out Patient. Pre-Procedure Time Out. Identified patient by full name and date of as verbalized by the patient/guarantor. Does the consent match the physician's order: Yes. Accurate & Complete Informed Consent: Yes. Inpatient/Outpatient History & Physical on Chart: Yes. If H&P is completed, is and addenduem needed: N/A; If yes, is the addendum complete: N/A. Visualize and Verify Site with Patient/Guarantor: N/A. Relevant Radiology Images available: N/A. Pre-op teaching completed and patient verbalized understanding. The risks, benefits, and alternatives of sedation and/or procedure were discussed by physician. The patient agrees to continue. Procedure started. [facility] Clinical Fraility Score: 3: Managing Well. Lead Bi Developer Indications: Worsening Angina. Chest Pain Symptom Assessment: Typical Angina Symptoms. Correct patient, site and procedure confirmed by cath team. Current diagnosis: Chest Pain. PERRLA. Strong, equal hand ear muff assembler bilaterally. Lungs clear x 5 lobes. IV Site on Arrival: 20 gauge in the right anticubital. IV Fluids: 0.9% NaCl at KVO. 0 mL infused prior to irrigation laborer. Pre Procedural Pulses: right dorsalis pedis was 2+. Pre Procedural Pulses: bilateral radial was 1+. Oxygen started at 2liters/min via nasal canula. right groin was prepped with chloroprep then draped in the usual sterile fashion. right radial was prepped with chloroprep then draped in the usual sterile fashion. Baseline sample Acquired. HR: 66 BPM. Physician notified. Physician arrived. Physician scrubbed in. Immediate Pre-Procedure Time Out. Correct Patient: Yes; Correct Procedure: Yes; Correct Site: Yes; Correct Patient Position: Yes; Correct Supplies: Yes; Dried Flammable Prep: Yes; Blood Products Available: N/A;. Lidocaine 1% infiltrated to the right radial. Arterial access obtained. A 5 malaysian TIG catheter in over wire. Multiple views taken of left coronary artery. Catheter redirected to the RCA. Catheter out. Dr Andrews notified to review cine films. A 5 malaysian Angled Pig catheter in over wire. EDP Sample taken: LV 128/5,34; HR: 66 BPM; SpO2: 98%. Pullback taken: LV 132/8,37; AO 133/68(96); Mean: 0mmHg, Peak to Peak: 0mmHg, SEP: 18sec/min; HR: 75 BPM; SpO2: 97%. Catheter out. Dr. Galan scrubbed out. Dr. Andrews scrubbed in to perform IFR. Patient's family updated. 6 malaysian XB 3 guide catheter was inserted over the wire. IFR guidewire was advanced through the guide catheter to lesion in the mid Circ. Fractional flow reserve measurements obtained. IFR wire removed. Guide catheter out. A TR Band was successful obtaining hemostatsis at the Right Radial artery insertion site. Post Procedure: Pulses reassessed and unchanged. PERRLA. Strong, equal hand ear muff assembler bilaterally. No VTE prophylaxis required. Medication's Wasted: Lidocaine 1% = 4 mL. Medication's Wasted: Nitro = 49.8 mg. Total IV fluids: 194 mL. Post-op diagnosis: Moderate Mid Circumflex stenosis. Complications: none. Estimated blood loss: 5mL-10mL. Responsiveness - Normal response to verbal stimuli; alert and oriented, PERRLA. Airway - Unaffected, no intervention required; spontaneous ventilation. Circulation: W/N/L, pulses unchanged. Nausea/Vomiting: No. Procedure completed. Patient transferred by wheelchair to CPRU. Vital chart was stopped. Access Site Site: Right Radial artery Sheath Size: 6 Fr Hemostasis Method: TR Band Hemostasis Success: Successful Procedure Medications Start: 8:45 AM Stop: 8:45 AM Medication: Versed Amount: 1 mg Route: I.V. Start: 8:46 AM Stop: 8:46 AM Medication: Fentanyl Amount: 50 mcg Route: I.V. Start: 8:47 AM Stop: 8:47 AM Medication: Versed Amount: 1 mg Route: I.V. Start: 8:47 AM Stop: 8:47 AM Medication: Fentanyl Amount: 50 mcg Route: I.V. Start: 8:51 AM Stop: 8:51 AM Medication: Nitrogylcerin Amount: 200 mcg Route: I.A. Start: 8:45 AM Stop: 8:45 AM Medication: 0.9% Saline Amount: 75 ml/hr Route: I.V. drip Start: 8:52 AM Stop: 8:52 AM Medication: Versed Amount: 1 mg Route: I.V. Start: 8:53 AM Stop: 8:53 AM Medication: Fentanyl Amount: 50 mcg Route: I.V. Start: 8:54 AM Stop: 8:54 AM Medication: Verapamil Amount: 5 mg Route: I.A. Start: 8:54 AM Stop: 8:54 AM Medication: 0.9% Saline Amount: 250 ml Route: I.V. bolus Start: 8:56 AM Stop: 8:56 AM Medication: Heparin Amount: 5000 units Route: I.V. Start: 9:14 AM Stop: 9:14 AM Medication: Versed Amount: 1 mg Route: I.V. Start: 9:14 AM Stop: 9:14 AM Medication: Fentanyl Amount: 50 mcg Route: I.V. Start: 9:16 AM Stop: 9:16 AM Medication: Heparin Amount: 1000 units Route: I.V. I, the attending physician, have reviewed and verified all procedure medications. Yes, all medications given per verbal order History/Risk Factors Hypertension: Yes Dyslipidemia: Yes Peripheral Arterial Disease (PAD): No Myocardial Infarction (MS): No Obesity: Yes Renal Disease: No Tobacco Use: Former Prior Interventions PCI: Yes CABG: No Valve Surgery: No Date of PCI: 09/29/2018 Report Signatures Interventional Workflow Finalized by Reji Andrews MD on 04/22/2022 12:18 PM Diagnostic Workflow Finalized by Dr Cecilia Galan MD [facility] on 04/11/2022 09:08 PM
--- NOTE | 2022-04-11 08:36 | W.PM.OPSUD ---
Surgery/Procedure H&P Update DATE OF PROCEDURE: April 11, 2022 DATE H&P PERFORMED: 03/27/22 H&P UPDATE INFORMATION: I have reviewed H&P completed within last 30 days, I have examined patient prior to procedure and No changes to prior documentation PREOP DIAGNOSIS: ASHD PRIMARY INDICATION FOR PROCEDURE: Chest pain and abnormal Myocardial perfusion imaging PLANNED PROCEDURE: Operation Date: 04/11/22 08:30 Proposed Procedures p Cardiac Catheterization(Left) - Cecilia Galan MD PATIENT REASSESSED PRIOR TO SEDATION, WITH NO CHANGE NOTED: Yes PHYSICAL EXAM: alert, oriented x 3, clear to auscultation bilaterally and regular rate & rhythm AIRWAY EVAL/ANESTHESIA PLAN: normal airway, see other exam findings, ASA II, Monitored Anesthesia, Local Anesthesia, Risks, benefits & alternatives of sedation and/or procedure discussed and Patient agrees to continue as planned
--- NOTE | 2022-04-11 09:30 | PC.NURSE ---
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 pt alert and oriented. tr band dry and intact on right wrist. no brusing or hematoma noted. pt educated on restrictions of right wrist and pt acknowledged understanding. pt states she is not experiencing pain. will continue to educated pt on restriction throughout recovery. pt family at bedside also receiving education. pt on vitals and will continue to monitor throughout recovery.
--- NOTE | 2022-04-11 13:42 | PC.NURSE ---
dr guardado in room answering questions pt has prior to dc.
== END 2022-04-11 13:54 | disposition home or self-care (01) ==
PROVIDERS: Internal Medicine; PCP Nurse Practitioner; Visit Provider Internal Medicine Cardiovascular Disease
DX: I65.21 Occlusion and stenosis of right carotid artery (principal); I25.118 Atherosclerotic heart disease of native coronary artery with other forms of angina pectoris; I10 Essential (primary) hypertension; E78.5 Hyperlipidemia, unspecified; E66.9 Obesity, unspecified; Z68.27 Body mass index [BMI] 27.0-27.9, adult; Z87.891 Personal history of nicotine dependence
CPT/HCPCS: 36415; 93452; 93458; 93571; 96360; 96361; 99152; 99153; C1769; C1887; C1894; J1644; J2250; J3010; J3490; J7030; Q0163; Q9967

== ENCOUNTER → 2022-04-17 10:37 | Outpatient (BNVA) | payer BC, SELFPAY | PROVIDERS: PCP Nurse Practitioner; Visit Provider Nurse Practitioner Family | DX: R82.998 Other abnormal findings in urine (principal); I25.118 Atherosclerotic heart disease of native coronary artery with other forms of angina pectoris | CPT/HCPCS: 80048; 80061; 81001; 87077; 87086; 87186 ==

== ENCOUNTER 2022-06-21 06:53 | Emergency (ER) | payer BC, SELFPAY ==
[2022-06-21] VITALS (9 sets, daily range): BP systolic 125–173; BP diastolic 79–95; PULSE 60–72; RESP 14–22; TEMP 36.6; O2SAT 94–100; BMI 25.9
--- NOTE | 2022-06-21 07:01 | XR_ITS ---
WS: [id number] Exam: XR chest 1V portable [id number] Date/Time of Exam: 06/21/2022 7:10 AM Reason For Exam: dyspnea/cough Comparison 03/18/2021. Findings: The lungs are clear and fully expanded. Costophrenic angles are sharp. No infiltrates. Bronchovascula r relief appears normal. Cardiac silhouette is unremarkable. Bony elements are intact. XR/XR chest 1V portable [id number] IMPRESSION: Unremarkable chest radiograph.
--- NOTE | 2022-06-21 07:01 | W.ED.ARRPALP ---
HPI - Arrhythmia/Palpitations General: Chief Complaint: Chest Pain Stated Complaint: heart racing Time Seen by Provider: 06/21/22 06:59 Source: patient Mode of arrival: ambulatory History of Present Illness: 62-year-old female presents to the emergency room complaints of palpitations and diaphoresis. Patient had chest discomfort and pressure also had some dizziness lightheadedness and shortness of breath. Resolved spontaneously. Previously patient had abnormal stress test in March subsequently had a coronary angiogram that showed nonischemic coronary artery disease and medical therapy was advised. Has been following with Dr. Galan. He is not having any chest pain at this time. MD complaint: rapid heart beat and heart racing Onset (ago): day(s) Duration: intermittent Severity: mild Context: occurred during rest Associated symptoms: Reports diaphoresis; Deny anxiety, cough, muscle cramps, nausea, paresthesias, pre-syncope, sense of impending doom, short of breath, syncope or vomiting Review of Systems Const: Reports: diaphoresis; Denies: fever(s), chills, fatigue or malaise ENMT: Denies: throat pain, ear or mastoid pain, nasal discharge or nasal congestion Card: Denies: chest pain, palpitations, syncope or pre-syncope Resp: Denies: dyspnea, productive cough or non-productive cough GI: Denies: abdominal pain, nausea or vomiting : Denies: flank pain, difficulty voiding, dysuria, urinary frequency or urinary urgency Musc: Denies: muscle cramps Skin/Breast: Denies: rash or pruritus Psych: Denies: anxiety PFSH ED PFSH: Medical History Hx of coronary artery disease Surgical History History of bunionectomy Hx of bilateral cataract extraction Hx of hysterectomy Hx of knee surgery Family History Mother CAD (coronary artery disease), Onset Age: 48 5 stents and a pig valve, triple bypass, 2 open heart surgeries Dementia Lung disease Brother Cancer Denies family history of Diabetes Clotting disorder Chronic kidney disease (CKD) Suicide Anesthesia complication Bleeding disorder Stroke Social History Smoking and tobacco status: former smoker Alcohol intake: never Physical Exam Const: GENERAL APPEARANCE: cooperative and comfortable ORIENTATION/CONSCIOUSNESS: Yes awake, Yes oriented to person, Yes oriented to place and Yes oriented to time HENMT: COMMON NORMALS: normocephalic, atraumatic and hearing grossly normal bilaterally HEAD & SCALP: normocephalic and atraumatic Resp: COMMON NORMALS: normal respiratory effort, No retractions, No use of accessory muscles and clear to auscultation bilaterally AUSCULTATION: clear to auscultation bilaterally Cardio: COMMON NORMALS: regular rate, regular rhythm and No murmurs present (Cardio) RATE: regular rate RHYTHM: regular rhythm GI: COMMON NORMALS: Soft to palpation and No hepatosplenomegaly present AUSCULTATION: Yes normoactive bowel sounds PALPATION: Yes Soft to palpation, No Tenderness to palpation present (GI), No Guarding due to palpation present (GI) and Yes No hepatosplenomegaly present Extremity: COMMON NORMALS: normal to inspection, capillary refill normal, no clubbing, cyanosis or edema, no calf tenderness and no pedal edema Neuro: SENSORIUM/ORIENTATION: Yes oriented to person, Yes oriented to place and Yes oriented to time Skin: COMMON NORMALS: no rashes or lesions noted GENERAL SKIN EXAM: no rashes or lesions noted Course Vital Signs: Vital signs: Vital Signs Temperature 98 F 06/21/22 07:09 Pulse Rate 72 06/21/22 12:49 Respiratory Rate 18 06/21/22 12:49 Blood Pressure 150/95 06/21/22 12:49 Pulse Oximetry 97 06/21/22 12:49 Oxygen Delivery Me thod 06/21/22 12:35 MDM - Arrhythmia/Palpitations Medical Decision Making Labs imaging and EKG reviewed. Outpatient 48-hour Holter monitor follow-up with cardiology continue medical management. 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 Lab Data I reviewed the patient's lab results. : 06/21/22 07:21 06/21/22 07:21 Radiology Impressions Chest X-Ray 06/21/22 07:01 IMPRESSION: Unremarkable chest radiograph. Laboratory Results WBC 6.6 10^3/uL (4.0-10.0) 06/21/22 07:21 RBC 5.29 10^6/uL (4.1-5.3) 06/21/22 07:21 Hgb 15.0 g/dL (11.5-15.3) 06/21/22 07:21 Hct 47.3 % (37.0-47.0) H 06/21/22 07:21 MCV 89.4 fl (81-99) 06/21/22 07:21 MCH 28.4 pg (28.0-34.0) 06/21/22 07:21 MCHC 31.7 g/dL (30.0-36.0) 06/21/22 07:21 RDW 13.7 % (12.1-15.1) 06/21/22 07:21 Plt Count 268 10^3/cmm (130-400) 06/21/22 07:21 MPV 10.2 fL (7.4-10.4) 06/21/22 07:21 Neut % (Auto) 48.7 % 06/21/22 07:21 Lymph % (Auto) 41.9 % 06/21/22 07:21 [place] % (Auto) 6.9 % 06/21/22 07:21 Eos % (Auto) 1.7 % 06/21/22 07:21 Baso % (Auto) 0.6 % 06/21/22 07:21 Neut # (Auto) 3.20 10^3/uL (1.8-7.7) 06/21/22 07:21 Lymph # (Auto) 2.8 10^3/uL (0.8-4.8) 06/21/22 07:21 [place] # (Auto) 0.5 10^3/uL (0.2-0.9) 06/21/22 07:21 Eos # (Auto) 0.1 10^3/uL (0.0-0.8) 06/21/22 07:21 Baso # (Auto) 0.0 10^3/uL (0.0-0.1) 06/21/22 07:21 Nucleated RBC % (auto) 0 % 06/21/22 07:21 Nucleated RBCs # 0.0 /100WBC 06/21/22 07:21 Sodium 140 mmol/L (136-145) 06/21/22 07:21 Potassium 4.3 mmol/L (3.5-5.1) 06/21/22 07:21 Chloride 103 mmol/L (98-107) 06/21/22 07:21 Carbon Dioxide 26 mmol/L (22-29) 06/21/22 07:21 Anion Gap 15.3 (5-19) 06/21/22 07:21 BUN 16 mg/dL (8-23) 06/21/22 07:21 Creatinine 0.5 mg/dL (0.5-0.9) 06/21/22 07:21 GFR Calculation 124.6 mL/min (90-130) 06/21/22 07:21 Glucose 123 mg/dL (65-115) H 06/21/22 07:21 Calculated Osmolality 293 mOsm/kg (285-295) 06/21/22 07:21 Calcium 10.1 mg/dL (8.5-10.5) 06/21/22 07:21 Total Bilirubin 0.2 mg/dL (0.15-1.2) 06/21/22 07:21 AST 15 U/L (0-32) 06/21/22 07:21 ALT 21 U/L (0-33) 06/21/22 07:21 Alkaline Phosphatase 75 U/L (35-105) 06/21/22 07:21 Troponin T Baseline 6 ng/L (0-10) 06/21/22 07:21 Troponin T 120 Minute 6.00 ng/L (0-10) 06/21/22 10:34 Delta Troponin T 0 ABS# (0-10) 06/21/22 10:34 Total Protein 7.8 g/dL (6.6-8.7) 06/21/22 07:21 Albumin 4.5 g/dL (3.5-5.2) 06/21/22 07:21 Globulin 3.3 g/dL (1.3-4.6) 06/21/22 07:21 Discharge Plan Discharge Patient Disposition: Home Clinical Impression: Heart palpitations Condition: Stable Prescriptions: No Action thyroid (pork) 30 mg tablet 30 mg PO DAILY nitroglycerin [Nitrostat] 0.4 mg tablet, sublingual 0.4 mg SUBLINGUAL Q5M PRN (Reason: chest pain) Qty: 30 0RF Rx Instructions: do not exceed 3 doses per episode prasugrel [Effient] 10 mg tablet 10 mg PO DAILY 90 Days Qty: 90 3RF Repatha SureClick 140 mg/mL pen injector 140 mg SUBCUT .2 weeks Qty: 2 3RF Vitamin D3 125 mcg (5,000 unit) Tablet 125 mcg PO DAILY Discharge Orders: Discharge ED (Routine); Ordered 06/21/22 Ordered By: Fabrice Roberts Referrals: Belem Cabral, AGED OR DISABLED CARE WORKER [Primary Care Provider] - Patient Instructions: Opioid Safety, Pain Management Activity Restrictions/Additional Instructions: Case management make arrangements for you to have a outpatient 48-hour Holter monitor. Follow-up with Dr. Galan. Coding Level of Care Code ED Instructor Technical Training for Chg Fwd Exam Detailed
--- NOTE | 2022-06-21 07:14 | ECG_ITS ---
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 Measurements Intervals Morgan Rate: 63 P: 30 NM: 191 QRS: 26 QRSD: 81 T: 20 QT: 391 QTc: 402 Interpretive Statements SINUS RHYTHM POSSIBLE LEFT ATRIAL ENLARGEMENT [-0.1mV P-WAVE IN V1/V2] Poor R wave progression Compared to ECG 03/18/2021 22:51:09 Myocardial infarct finding no longer present Electronically Signed On 06-21-2022 19:06:50 CDT by Cecilia Galan M.D. [id number]
[2022-06-21 07:25] LABS: Basophils % 0.6 %; Eosinophils # 0.1 10^3/uL (0.0-0.8); Eosinophils % 1.7 %; Hematocrit 47.3 % (37.0-47.0); Lymphocytes # 2.8 10^3/uL (0.8-4.8); Lymphocytes % 41.9 %; Mean Corpuscular HGB Conc 31.7 g/dL (30.0-36.0); Mean Corpuscular Hemoglobin 28.4 pg (28.0-34.0); Mean Corpuscular Volume 89.4 fl (81-99); Mean Platelet Volume 10.2 fL (7.4-10.4); Monocytes # 0.5 10^3/uL (0.2-0.9); Monocytes % 6.9 %; Neutrophils % 48.7 %; Nucleated Red Blood Cells % 0 %; Platelet Count 268 10^3/cmm (130-400); Red Blood Count 5.29 10^6/uL (4.1-5.3); Red Cell Distribution Width 13.7 % (12.1-15.1); White Blood Count 6.6 10^3/uL (4.0-10.0)
[2022-06-21 07:58] LABS: Alanine Aminotransferase 21 U/L (0-33); Albumin Level 4.5 g/dL (3.5-5.2); Alkaline Phosphatase 75 U/L (35-105); Anion Gap 15.3 (5-19); Aspartate Amino Transferase 15 U/L (0-32); Blood Urea Nitrogen 16 mg/dL (8-23); Calcium 10.1 mg/dL (8.5-10.5); Carbon Dioxide 26 mmol/L (22-29); Chloride 103 mmol/L (98-107); Globulin 3.3 g/dL (1.3-4.6); Glomerular Filtration Rate 124.6 mL/min (90-130); Glucose 123 mg/dL (65-115); Osmolality Calculated 293 mOsm/kg (285-295); Potassium 4.3 mmol/L (3.5-5.1); Sodium 140 mmol/L (136-145); Total Bilirubin 0.2 mg/dL (0.15-1.2); Total Protein 7.8 g/dL (6.6-8.7)
--- NOTE | 2022-06-21 10:47 | ECG_ITS ---
[facility] Test Date: 2022-06-21 Pat Name: Karen Oden Department: Room: Gender: Female Tip Length Checker: : 1960 Requested By: Fabrice Abraham Order Number: [id number] Daniela MD: Cecilia Galan M.D. Measurements Intervals Sears Rate: 59 P: 28 FL: 188 QRS: 16 QRSD: 84 T: 30 QT: 392 QTc: 389 Interpretive Statements SINUS BRADYCARDIA Poor R wave progression Compared to ECG 06/21/2022 07:14:22 Sinus rhythm no longer present Electronically Signed On 06-21-2022 19:07:43 CDT by Cecilia Galan M.D. [id number]
[2022-06-21 11:00] LABS: Troponin(5th) Baseline 6 ng/L (0-10)
[2022-06-21 11:41] LABS: Troponin 5 2HR Delta 0 ABS# (0-10)
--- NOTE | 2022-06-21 12:27 | PC.NURSE ---
attempted to discharge pt, pt voiced concerns regarding discharge and having holter monitor placed outpatient instead of in ER prior to discharge. Attempted to educate pt and answer questions/concerns. Pt not accepting education from nurse. Pt requesting to speak with physician prior to discharge. Physician and charge nurse notified.
--- NOTE | 2022-06-21 13:15 | DCPLANNER ---
Addendum entered by Jenn Latif 09/02/22 15:12: Patient had a follow up appointment at [facility] - patient did attend appointment Addendum entered by Jenn Latif 06/25/22 05:19: Patient has a follow up appointment scheduled for Saturday, June 25, 2022 at 2:00 at [facility] for a 48 hour halter monitor. Clinic will call patient with appointment information. Original Note: quality project manager had message to schedule an outpatient appointment at [facility] for a 48 hour halter monitor. quality project manager faxed signed order to [facility], who will call patient with appointment information.
== END 2022-06-21 12:45 | disposition home or self-care (01) ==
PROVIDERS: Emergency Provider Family Medicine; PCP Nurse Practitioner
DX: R00.2 Palpitations (principal); I25.10 Atherosclerotic heart disease of native coronary artery without angina pectoris
CPT/HCPCS: 36415; 71045; 80053; 84484; 85025; 93005; 99285

== ENCOUNTER → 2022-11-19 09:49 | Outpatient (BNVA) | payer BC, SELFPAY | PROVIDERS: PCP Nurse Practitioner; Visit Provider Neurological Surgery | DX: D35.2 Benign neoplasm of pituitary gland (principal) | CPT/HCPCS: 80048; 81000 ==

== ENCOUNTER → 2022-11-21 09:41 | Outpatient (BNVA) | payer BC, SELFPAY | PROVIDERS: PCP Nurse Practitioner; Visit Provider Neurological Surgery | DX: D35.2 Benign neoplasm of pituitary gland (principal); R20.8 Other disturbances of skin sensation; Z86.39 Personal history of other endocrine, nutritional and metabolic disease | CPT/HCPCS: 80048; 83001; 83002; 84146; 84305; 84439; 84443 ==

== ENCOUNTER → 2022-11-25 09:48 | Outpatient (BNVA) | payer BC, SELFPAY | PROVIDERS: PCP Nurse Practitioner; Visit Provider Neurological Surgery | DX: D35.2 Benign neoplasm of pituitary gland (principal) | CPT/HCPCS: 80048; 81000 ==

== ENCOUNTER → 2022-11-28 09:36 | Outpatient (BNVA) | payer BC, SELFPAY | PROVIDERS: PCP Nurse Practitioner; Visit Provider Neurological Surgery | DX: D35.2 Benign neoplasm of pituitary gland (principal) | CPT/HCPCS: 80048; 81003 ==